=== PATIENT | female | born 1980 | race Caucasian/White ===

== ENCOUNTER 2022-06-04 10:42 | Inpatient (IN) | payer MEDICARE, MEDICAID ==
[2022-06-04 12:34] LABS: #Lymphocytes 0.6 thou/uL (1.20-3.40); #Monocytes 0.1 thou/uL (0.11-0.59); #Neutrophils 2.1 thou/uL (1.40-6.50); %Basophils 0.8 % (0.0-1.0); %Monocytes 1.9 % (0.0-10.0); %Neutrophils 75.3 % (42.0-75.0); Hemoglobin 13.5 g/dL (12.0-16.0); Mean Corpuscular HGB CONC 34.6 g/dL (32.0-36.0); Mean Corpuscular Hemoglobin 35.4 pg (27.0-31.0); Mean Platelet Volume 8.1 fL (7.4-10.4); Platelet Count 159 10x3/uL (130-400); RBC Distribution Width 13.3 % (11.5-14.5); Red Blood Cell (RBC) Count 3.82 mill/uL (4.20-5.40); White Blood Cell (WBC) Count 2.8 10x3/uL (4.8-10.8)
[2022-06-04 12:53] LABS: ALT (SGPT) 17 U/L (8-55); AST (SGOT) 43 U/L (5-34); Albumin 3.2 g/dL (3.5-5.0); Alkaline Phosphatase 53 U/L (40-110); Anion Gap 14 mmol/L (10-20); BUN (Urea Nitrogen) 7 mg/dL (7.0-18.7); Bilirubin, Total 0.3 mg/dL (0.2-1.2); Calc. Creatinine Clearance 0 mL/min (70-130); Calcium 8.2 mg/dL (7.8-10.44); Carbon Dioxide 21 mmol/L (22-29); Chloride 101 mmol/L (98-107); Estimated GFR 102; Globulin 3.7 g/dL (2.4-3.5); Glucose 111 mg/dL (70-105); Protein, Total 6.9 g/dL (6.0-8.3); Sodium 132 mmol/L (136-145)
[2022-06-04] MEDS ORDERED: Dexamethasone 10 MG/ML VIAL ONE (14:43)
[2022-06-04] MEDS ORDERED: Iopamidol-370 76% 500 ML 1 ML ONE (15:19)
[2022-06-04 15:31] LABS: Magnesium 1.8 mg/dL (1.6-2.6)
[2022-06-04] MEDS ORDERED: Acetaminophen 325 MG TAB PO PRN (16:08)
[2022-06-04] MEDS ORDERED: HYDROcodone/Acetaminophen 5/325 mg Tablet PO PRN (16:08)
[2022-06-04] MEDS ORDERED: Ondansetron PF 4 MG/2 ML Vial IVP PRN (16:08)
[2022-06-04] MEDS ORDERED: GUAIFENESIN SF SOLN 200 MG/10 ML UDCUP PO PRN (16:15)
[2022-06-04] MEDS ORDERED: Albuterol 200 PUFF (6.7GM INHALER) INH PRN (16:16)
[2022-06-04 17:53] VITALS: BMI 39.0
[2022-06-04 18:10] LABS: SARS-CoV-2 NAA Rapid Test DETECTED (NotDetected)
[2022-06-04] MEDS ORDERED: REMDESIVIR 200 MG in Sodium Chloride 0.9% 250 ML 210 ML IV SCH (21:00)
[2022-06-04] MEDS ORDERED: Benzonatate 100 MG CAP ONE (23:06)
[2022-06-04] MEDS: Benzonatate 100 MG CAP PO SCH (23:36)
[2022-06-05] MEDS ORDERED: Albuterol 200 PUFF (6.7GM INHALER) INH PRN (00:51)
[2022-06-05] MEDS ORDERED: Ipratropium/Albuterol 3 ML NEB ONE (01:23)
[2022-06-05 07:55] LABS: Hemoglobin 12.9 g/dL (12.0-16.0); Mean Corpuscular Hemoglobin 35.3 pg (27.0-31.0); Mean Platelet Volume 8.5 fL (7.4-10.4); Platelet Count 166 10x3/uL (130-400); RBC Distribution Width 13.3 % (11.5-14.5); Red Blood Cell (RBC) Count 3.66 mill/uL (4.20-5.40); White Blood Cell (WBC) Count 1.7 10x3/uL (4.8-10.8)
[2022-06-05 07:56] LABS: Anion Gap 12 mmol/L (10-20); BUN (Urea Nitrogen) 8 mg/dL (7.0-18.7); Calc. Creatinine Clearance 179 mL/min (70-130); Calcium 8.6 mg/dL (7.8-10.44); Carbon Dioxide 20 mmol/L (22-29); Chloride 104 mmol/L (98-107); Estimated GFR 114; Glucose 146 mg/dL (70-105); Potassium 4.2 mmol/L (3.5-5.1); Sodium 132 mmol/L (136-145)
[2022-06-05 08:20] LABS: Band 14 % (5-11); Lymphocytes 26 % (21-51); MDiff Complete? YES; Macrocytosis SLIGHT = 6-15 cells (100X) (0-5/hpf); Monocytes 6 % (0-10); Neutrophil 52 % (42-75); Platelet Morphology Comment Appears Adequate; Polychromasia SLIGHT = 2-3 cells (100X) (0-2/hpf); Reactive Lymphocytes 2 % (0-10)
[2022-06-05] MEDS ORDERED: Dexamethasone 4 mg/ml Vial ONE (08:31)
[2022-06-05] MEDS ORDERED: Benzonatate 100 MG CAP ONE (08:31)
[2022-06-05] MEDS ORDERED: cefTRIAXone\\ROCEPHIN 1 GM VIAL ONE (08:34)
[2022-06-05] MEDS: Benzonatate 100 MG CAP PO SCH ×3 (08:49→20:37)
[2022-06-05] MEDS: cefTRIAXone\\ROCEPHIN 1 GM in Sodium Chloride 0.9% 100 ML IVPB SCH (08:50)
[2022-06-05] MEDS: Dexamethasone 4 mg/ml Vial SLOW IVP SCH (08:50)
[2022-06-05] MEDS: REMDESIVIR 100 MG in Sodium Chloride 0.9% 250 ML 230 ML IV SCH (20:39)
[2022-06-06] MEDS ORDERED: FLU VACC QS2022-23(6MOS UP)/PF 60 MCG/0.5 ML SYRINGE IM ONE (09:00)
[2022-06-06] MEDS: cefTRIAXone\\ROCEPHIN 1 GM in Sodium Chloride 0.9% 100 ML IVPB SCH (09:17)
[2022-06-06] MEDS: Benzonatate 100 MG CAP PO SCH ×3 (09:18→21:31)
[2022-06-06] MEDS: Dexamethasone 4 mg/ml Vial SLOW IVP SCH (09:18)
[2022-06-06] MEDS ORDERED: Thyroid 30 MG TAB PO SCH ×3 (09:30→15:00)
[2022-06-06] MEDS ORDERED: Cyclobenzaprine 10 MG TAB PO SCH (09:30)
[2022-06-06] MEDS: Thyroid 30 MG TAB PO SCH ×2 (12:03→17:00)
[2022-06-06] MEDS ORDERED: Hydroxychloroquine Sulfate 200 MG TAB PO SCH (21:00)
[2022-06-06] MEDS: Amitriptyline HCl 10 MG TAB PO SCH (21:31)
[2022-06-06] MEDS: Cyclobenzaprine 10 MG TAB PO SCH (21:31)
[2022-06-06] MEDS: REMDESIVIR 100 MG in Sodium Chloride 0.9% 250 ML 230 ML IV SCH (21:33)
[2022-06-07] MEDS: Thyroid 30 MG TAB PO SCH ×4 (08:00→16:50)
[2022-06-07] MEDS ORDERED: Polyethylene Glycol 3350 17 GM Packet PO PRN (08:29)
[2022-06-07] MEDS ORDERED: Senokot 8.6 MG TAB PO SCH (08:30)
[2022-06-07] MEDS ORDERED: Aspirin Chewable 81 MG TAB PO SCH (09:00)
[2022-06-07 09:08] LABS: ALT (SGPT) 18 U/L (8-55); AST (SGOT) 22 U/L (5-34); Alkaline Phosphatase 57 U/L (40-110); Anion Gap 14 mmol/L (10-20); BUN (Urea Nitrogen) 20 mg/dL (7.0-18.7); Bilirubin, Total 0.2 mg/dL (0.2-1.2); Calc. Creatinine Clearance 174 mL/min (70-130); Calcium 8.5 mg/dL (7.8-10.44); Carbon Dioxide 23 mmol/L (22-29); Chloride 104 mmol/L (98-107); Estimated GFR 113; Globulin 3.7 g/dL (2.4-3.5); Glucose 108 mg/dL (70-105); Potassium 4.4 mmol/L (3.5-5.1); Protein, Total 6.7 g/dL (6.0-8.3); Sodium 137 mmol/L (136-145)
[2022-06-07] MEDS: Cholecalciferol (Vitamin D3) 400 UNITS TAB PO SCH (09:54)
[2022-06-07] MEDS: Aspirin Chewable 81 MG TAB PO SCH (09:54)
[2022-06-07] MEDS: Dexamethasone 4 mg/ml Vial SLOW IVP SCH (09:55)
[2022-06-07] MEDS: Benzonatate 100 MG CAP PO SCH ×3 (09:55→20:31)
[2022-06-07] MEDS: Ascorbic Acid 500 mg Chewable Tablet PO SCH (09:55)
[2022-06-07] MEDS: Cyclobenzaprine 10 MG TAB PO SCH ×2 (09:55→20:31)
[2022-06-07] MEDS: Zinc Sulfate 220 MG CAP PO SCH (09:55)
[2022-06-07] MEDS: cefTRIAXone\\ROCEPHIN 1 GM in Sodium Chloride 0.9% 100 ML IVPB SCH (11:20)
[2022-06-07] MEDS: Amitriptyline HCl 10 MG TAB PO SCH (20:31)
[2022-06-07] MEDS: REMDESIVIR 100 MG in Sodium Chloride 0.9% 250 ML 230 ML IV SCH (20:31)
[2022-06-08 06:52] LABS: ALT (SGPT) 30 U/L (8-55); AST (SGOT) 27 U/L (5-34); Albumin 2.9 g/dL (3.5-5.0); Alkaline Phosphatase 52 U/L (40-110); Anion Gap 13 mmol/L (10-20); BUN (Urea Nitrogen) 24 mg/dL (7.0-18.7); Bilirubin, Total 0.2 mg/dL (0.2-1.2); Calc. Creatinine Clearance 157 mL/min (70-130); Calcium 8.2 mg/dL (7.8-10.44); Carbon Dioxide 22 mmol/L (22-29); Chloride 106 mmol/L (98-107); Estimated GFR 103; Globulin 3.5 g/dL (2.4-3.5); Glucose 107 mg/dL (70-105); Potassium 4.4 mmol/L (3.5-5.1); Protein, Total 6.4 g/dL (6.0-8.3); Sodium 137 mmol/L (136-145)
[2022-06-08] MEDS: Thyroid 30 MG TAB PO SCH ×4 (08:09→17:14)
[2022-06-08] MEDS: Dexamethasone 4 mg/ml Vial SLOW IVP SCH (08:13)
[2022-06-08] MEDS: Zinc Sulfate 220 MG CAP PO SCH (08:15)
[2022-06-08] MEDS: Benzonatate 100 MG CAP PO SCH ×3 (08:15→20:09)
[2022-06-08] MEDS: Cyclobenzaprine 10 MG TAB PO SCH ×2 (08:15→20:09)
[2022-06-08] MEDS: Aspirin Chewable 81 MG TAB PO SCH (08:15)
[2022-06-08] MEDS: Ascorbic Acid 500 mg Chewable Tablet PO SCH (08:15)
[2022-06-08] MEDS: Cholecalciferol (Vitamin D3) 400 UNITS TAB PO SCH (08:15)
[2022-06-08] MEDS: cefTRIAXone\\ROCEPHIN 1 GM in Sodium Chloride 0.9% 100 ML IVPB SCH (08:18)
[2022-06-08] MEDS: Senokot 8.6 MG TAB PO PRN (08:19)
[2022-06-08] MEDS ORDERED: Calcium/Multivitamins W-Iron 1 TAB TAB PO SCH (09:00)
[2022-06-08] MEDS ORDERED: Multivitamin W/ Minerals 1 TAB PO SCH (09:15)
[2022-06-08] MEDS: Amitriptyline HCl 10 MG TAB PO SCH (20:09)
[2022-06-09] MEDS: Thyroid 30 MG TAB PO SCH ×3 (07:16→11:48)
[2022-06-09] MEDS: Ascorbic Acid 500 mg Chewable Tablet PO SCH (07:18)
[2022-06-09] MEDS: Senokot 8.6 MG TAB PO PRN (07:18)
[2022-06-09] MEDS: Cholecalciferol (Vitamin D3) 400 UNITS TAB PO SCH (07:19)
[2022-06-09] MEDS: Benzonatate 100 MG CAP PO SCH (07:19)
[2022-06-09] MEDS: Cyclobenzaprine 10 MG TAB PO SCH (07:19)
[2022-06-09] MEDS: Zinc Sulfate 220 MG CAP PO SCH (07:20)
[2022-06-09] MEDS: Aspirin Chewable 81 MG TAB PO SCH (07:20)
[2022-06-09 07:52] LABS: ALT (SGPT) 63 U/L (8-55); AST (SGOT) 34 U/L (5-34); Alkaline Phosphatase 54 U/L (40-110); Anion Gap 10 mmol/L (10-20); BUN (Urea Nitrogen) 23 mg/dL (7.0-18.7); Bilirubin, Total 0.2 mg/dL (0.2-1.2); Calc. Creatinine Clearance 164 mL/min (70-130); Calcium 8.5 mg/dL (7.8-10.44); Carbon Dioxide 26 mmol/L (22-29); Chloride 104 mmol/L (98-107); Estimated GFR 108; Globulin 3.3 g/dL (2.4-3.5); Glucose 74 mg/dL (70-105); Potassium 4.4 mmol/L (3.5-5.1); Protein, Total 6.3 g/dL (6.0-8.3); Sodium 136 mmol/L (136-145)
[2022-06-09] MEDS ORDERED: Dexamethasone 4 MG TAB PO SCH (08:00)
[2022-06-09 08:24] VITALS: BP 113/66; TEMP 97.7
[2022-06-09] MEDS ORDERED: Multivitamin W/ Minerals 1 TAB PO SCH (09:00)
[2022-06-09] MEDS ORDERED: REMDESIVIR 100 MG in Sodium Chloride 0.9% 250 ML 230 ML IV SCH (09:00)
== END 2022-06-09 15:25 | disposition home or self-care (01) | DRG 177 ==
LOC: ERS 10:42 → ERHOLD 15:40 → T4-A 06-05 12:50
PROVIDERS: ADMIT Hospitalist; ATTEND Internal Medicine
PROC: XW033E5 Introduction of Remdesivir Anti-infective into Peripheral Vein, Percutaneous Approach, New Technology Group 5 (ICD-10-PCS; principal; 2022-06-04)
PROC: 3E0DX3Z Introduction of Anti-inflammatory into Mouth and Pharynx, External Approach (ICD-10-PCS; 2022-06-04)
PROC: 8E0ZXY6 Isolation (ICD-10-PCS; 2022-06-04)
DX: U07.1 COVID-19 (principal); J12.82 Pneumonia due to coronavirus disease 2019; J96.01 Acute respiratory failure with hypoxia; M06.9 Rheumatoid arthritis, unspecified; E03.9 Hypothyroidism, unspecified; M19.90 Unspecified osteoarthritis, unspecified site; Z88.1 Allergy status to other antibiotic agents; Q90.9 Down syndrome, unspecified; Z88.2 Allergy status to sulfonamides
CPT/HCPCS: 36415; 36416; 71045; 71046; 71275; 80048; 80053; 83735; 83880; 84443; 84484; 85025; 85379; 86140; 96374; J0248; J0696; J1100; J1650; J3490; J7050; J7620; J8540; Q9967

== ENCOUNTER 2022-07-02 10:18 | Outpatient (CLI) | payer MEDICARE, MEDICAID | END 2022-07-02 10:19 | disposition home or self-care (01) | LOC: BICRAD 10:18 | PROVIDERS: ATTEND Internal Medicine Rheumatology | DX: R06.02 Shortness of breath (principal) | CPT/HCPCS: 71046 ==